=== PATIENT | female | born 1955 | race Caucasian/White ===

== ENCOUNTER 2018-01-12 08:06 | Outpatient (CLI) | payer BC ==
--- NOTE | 2018-01-12 10:36 | MMO ---
BILATERAL DIGITAL SCREENING MAMMOGRAMS: History: 62-year-old female for digital screening mammography. Comparison: 12-31-16, 11-27-15, 11-01-14, 11-27-15, This study is interpreted with the assistance of computer aided detection. FINDINGS: The breasts are heterogeneously dense which can obscure small masses. There are some stable typically benign calcifications. No direct or indirect evidence of malignancy. IMPRESSION: BIRADS category 2 - benign findings. Continue routine screening. POS: [facility]
== END 2018-01-12 08:07 | disposition home or self-care (01) ==
LOC: SCSMAMMO 08:06
PROVIDERS: ATTEND Internal Medicine
DX: Z12.31 Encounter for screening mammogram for malignant neoplasm of breast (principal)
CPT/HCPCS: 77067